=== PATIENT | female | born 1985 ===

== ENCOUNTER 2019-08-17 13:21 | Outpatient (CLI) | payer OTHER, SELFPAY ==
[2019-08-17 13:50] LABS: Basophils % 0.6 %; Eosinophils # 0.1 10^3/uL (0.0-0.8); Eosinophils % 1.1 %; Hematocrit 44.2 % (37.0-47.0); Hemoglobin 14.8 g/dL (11.5-15.3); Lymphocytes # 3.3 10^3/uL (0.8-4.8); Lymphocytes % 46.9 %; Mean Corpuscular HGB Conc 33.5 g/dL (30.0-36.0); Mean Corpuscular Hemoglobin 29.2 pg (28.0-34.0); Mean Corpuscular Volume 87.2 fL (81-99); Mean Platelet Volume 8.9 fL (7.4-10.4); Monocytes # 0.7 10^3/uL (0.2-0.9); Monocytes % 9.7 %; Neutrophils % 41.4 %; Nucleated Red Blood Cells % 0 %; Platelet Count 364 10^3/cmm (130-400); Red Blood Count 5.07 10^6/uL (4.1-5.3); Red Cell Distribution Width 12.6 % (12.1-15.1); White Blood Count 7.1 10^3/uL (4.0-10.0)
[2019-08-17 13:57] LABS: Add RBC Morph No
[2019-08-17 14:12] LABS: Free T4 Free Thyroxine 1.36 ng/dL (0.82-1.77); Thyroid Stimulating Hormone 1.37 uIU/mL (0.27-4.20)
== END 2019-08-17 13:22 | disposition home or self-care (01) ==
LOC: LAB 13:23
PROVIDERS: Family Provider Family Medicine; PCP Family Medicine; Visit Provider Nurse Practitioner Family
DX: R59.1 Generalized enlarged lymph nodes (principal)
CPT/HCPCS: 84439; 84443; 85025

== ENCOUNTER 2019-09-07 07:14 | Outpatient (CLI) | payer OTHER, SELFPAY ==
--- NOTE | 2019-09-07 07:15 | US_ITS ---
WS: [id number] ULTRASOUND SOFT TISSUES submandibular region. HISTORY: neck lump COMPARISON: None available. TECHNIQUE: 2-D and color Doppler imaging is submitted. There are multiple hypoechoic masses or placement of a normal fatty hilum in the submental and subman dibular regions bilaterally. These are abnormal lymph nodes with increased vascularity. The largest l ymph node measures 1.4 x 0.6 x 1.4 cm in the submental region. Lymph nodes are not significantly enla rged but they are abnormal in echogenicity and replacement of the hilum. There is an additional area of calcification in the LEFT neck causing shadowing. US/US soft tissue head neck [id number] IMPRESSION: 1. Numerous abnormal lymph nodes in the submental and submandibular regions. M ay be reactive adenopathy but neoplasm needs to be excluded. Recommend follow-u p neck CT with IV contrast. 2. No abscess.
== END 2019-09-07 07:15 | disposition home or self-care (01) ==
PROVIDERS: Family Provider Family Medicine; PCP Family Medicine; Visit Provider Nurse Practitioner Family
DX: R22.1 Localized swelling, mass and lump, neck (principal)
CPT/HCPCS: 76536

== ENCOUNTER 2019-09-08 14:04 | Outpatient (CLI) | payer OTHER, SELFPAY ==
--- NOTE | 2019-09-08 14:16 | CTR_ITS ---
PROCEDURE INFORMATION: Exam: CT Neck With Contrast Exam date and time: 09/08/2019 4:33 PM Age: 34 years old Clinical indication: Patient HX: Lumps on neck; Additional info: Abnormal lymph nodes TECHNIQUE: Imaging protocol: Computed tomography images of the neck with intravenous contrast. Total DLP: 629.19 mGy-cm Radiation optimization: All CT scans at this facility use at least one of these dose optimization techniques: automated exposure control; mA and/or kV adjustment per patient size (includes targeted exams where dose is matched to clinical indication); or iterative reconstruction. Contrast material: OMNI 300; Contrast volume: 95 ml; Contrast route: IV; COMPARISON: US soft tissue head neck [id number] 09/07/2019 7:30 AM FINDINGS: Nasopharynx: Tonsils and adenoids are diffusely and mildly enlarged concerning for mild adenitis. Oropharynx: Unremarkable. No significant tonsillar enlargement. Hypopharynx: Unremarkable Larynx: Unremarkable. Normal epiglottis. Retropharyngeal space: Unremarkable. Submandibular/Parotid glands: The submandibular gland is slightly longer than the right on the coronal images but is identical in density. The left submandibular gland measures 3.3 cm in length and the right measures 3.0 cm. Both glands measure 2.2 cm anterior to posterior and 1.5 cm medial to lateral. Both glands are identical in density. There is no adjacent edema or fluid and no calculus in the gland. This may simply reflect congenital variation. Note is made that there is a marker on the skin surface which is directly adjacent to the tip of the long gated left submandibular gland. Thyroid: Normal. No enlarged or calcified nodules. Lymph nodes: There is submandibular adenopathy left slightly greater than right with the largest lymph node on image 51 measuring 1.3 cm in short axis. On the right at the same image level, the largest lymph node measures 1.1 cm in short axis. Additional subcentimeter lymph nodes are noted in the neck but there is no additional pathologic adenopathy. Trachea: Visualized trachea is unremarkable. Lungs: Unremarkable as visualized. Bones/joints: Unremarkable. No acute fracture. Soft tissues: No fluid collection or abscess. CT/CT neck w con* [id number] IMPRESSION: 1. Tonsils and adenoids are diffusely and mildly enlarged concerning for mild adenitis. 2. Adenopathy in the submandibular region as above. No additional adenopathy in the neck. No additional mass. No fluid collection or abscess. 3. Slight asymmetry in the length of the submandibular glands may reflect congenital variation. The left submandibular gland is slightly longer than the right but otherwise there are identified coil in appearance. Marker on the skin surface is directly overlying the inferior tip elongated left submandibular gland. Radiation Dose CTDIVOL = (mGy): DLP = 629.19 (mGy-cm)
[2019-09-08] MEDS: iohexol 300 mg/mL 100 mL Btl IV (16:35)
== END 2019-09-08 14:05 | disposition home or self-care (01) ==
LOC: RAD 14:07
PROVIDERS: Family Provider Family Medicine; PCP Family Medicine; Visit Provider Nurse Practitioner Family
DX: J35.3 Hypertrophy of tonsils with hypertrophy of adenoids (principal); R22.1 Localized swelling, mass and lump, neck
CPT/HCPCS: 70491

== ENCOUNTER → 2019-09-14 09:16 | Outpatient (BNVA) | payer OTHER, SELFPAY | PROVIDERS: Family Provider Family Medicine; PCP Family Medicine; Referring Provider Nurse Practitioner Family; Visit Provider Otolaryngology | DX: R22.1 Localized swelling, mass and lump, neck (principal); J35.01 Chronic tonsillitis; J35.8 Other chronic diseases of tonsils and adenoids | CPT/HCPCS: 99203; 99214 ==

== ENCOUNTER → 2019-10-12 13:38 | Outpatient (BNVA) | payer OTHER, SELFPAY | PROVIDERS: Family Provider Family Medicine; PCP Family Medicine; Visit Provider Otolaryngology | DX: R22.1 Localized swelling, mass and lump, neck (principal); J35.01 Chronic tonsillitis; J35.8 Other chronic diseases of tonsils and adenoids | CPT/HCPCS: 99214 ==

== ENCOUNTER 2019-10-26 08:45 | Day surgery (SDC) | payer OTHER, SELFPAY ==
[2019-10-18 13:29] VITALS: BMI 26.9
[2019-10-26] VITALS (9 sets, daily range): BP systolic 120–152; BP diastolic 66–94; PULSE 62–91; RESP 16–24; TEMP 36.2–36.7; O2SAT 97–100
[2019-10-26 09:28] LABS: OR HCG Qualitative Urine Negative (Negative)
--- NOTE | 2019-10-26 09:35 | ANES.PREANE2 ---
Pre-Anesthetic Assessment Pre-Anesthetic Assessment: Height/Weight: Height 1.57 m Weight 66.678 kg Temp Pulse Resp BP Pulse Ox 97.8 F 77 18 130/94 100 10/26/19 09:06 10/26/19 09:06 10/26/19 09:06 10/26/19 09:06 10/26/19 09:06 Preop Diagnosis: Midline neck mass Proposed Procedure: Operation Date: 10/19/19 11:20 Proposed Procedures p excision midline neck mass, possible heidy procedure (19840, 68823) R22.1(Not Applicable) - Radhames Mcdonough MD s Possible Heidy Procedure(Not Applicable) - Radhames Mcdonough MD Operation Date: 10/26/19 10:15 Proposed Procedures p excision midline neck mass, possible heidy procedure (48301, 93981) R22.1(Not Applicable) - Radhames Mcdonough MD s Possible Heidy Procedure(Not Applicable) - Radhames Mcdonough MD Was Beta Leatha taken within 24 hours: N/A Last intake: Intake Last Liquid Date 10/25/19 Last Liquid Time 09:11 Last Solid Date 10/25/19 Last Solid Time 22:00 Social: Social History: No alcohol and No tobacco Exam: Pre-Anes Outpt Exam: alert, oriented x 3, clear to auscultation bilaterally and regular rate & rhythm Airway: Submandibular: WNL Cervical ROM: WNL MP: 2 Dentition: Full History/ROS: No significant complaints Pulmonary: Pulmonary: None reported CV/HEM: CV/HEM: None reported : : None reported Hepatic: Hepatic: None reported GI: GI: None reported Metabolic: Metabolic: None reported Musc/skel: Musc/skel: None reported Neuropsych: Neuropsych: None reported Anesthetic Plan: ASA status: 1 Anesthesia: General Risk of > 500 ml blood loss (7ml/kg in children): No PFSH Anesthesia PFSH: Social History Smoking and tobacco status: never smoked Alcohol intake: current Alcohol intake frequency: few times a month Alcohol type: wine Female Reproductive History: Date of last menstrual period: 08/05/19 Data Anesthesia Other Labs: Laboratory Results - last 48 hr 10/26/19 09:19 Urine HCG, Qual Negative Cardiac Studies: No Data to Display
[2019-10-26] MEDS: sodium chloride 0.9% 1,000 ML 30 ML IV (09:49)
--- NOTE | 2019-10-26 09:59 | W.PM.OPSUD ---
Surgery/Procedure H&P Update DATE OF PROCEDURE: October 26, 2019 DATE H&P PERFORMED: 10/12/19 H&P UPDATE INFORMATION: I have reviewed H&P completed within last 30 days, I have examined patient prior to procedure and No changes to prior documentation PREOP DIAGNOSIS: Midline neck mass PLANNED PROCEDURE: Operation Date: 10/19/19 11:20 Proposed Procedures p excision midline neck mass, possible heidy procedure (82100, 40891) R22.1(Not Applicable) - Radhames Mcdonough MD s Possible Heidy Procedure(Not Applicable) - Radhames Mcdonough MD Operation Date: 10/26/19 10:15 Proposed Procedures p excision midline neck mass, possible heidy procedure (70510, 09946) R22.1(Not Applicable) - Radhames Mcdonough MD s Possible Heidy Procedure(Not Applicable) - Radhames Mcdonough MD
[2019-10-26] MEDS: neomycin-poly-bacitracin oint 28 gm 1 APPLIC TOPICAL (13:11)
--- NOTE | 2019-10-26 13:21 | SUR.PHASEI ---
1320 PATIENT TO PACU AT THIS TIME. DRESSING TO ANTERIOR NECK, BULKY, CDI. RR EVEN AND UNLABORED, PLACED ON SIMPLE MASK AT 8L, SPO2 100%/. PATIENT RESPONDS TO VERBAL STIMULI, DENIES PAIN.
--- NOTE | 2019-10-26 13:44 | SUR.PHASEI ---
1341 PATIENT TO PACU AT THIS TIME. DENIES PAIN. DRESSING CDI TO ANTERIOR NECK.
--- NOTE | 2019-10-26 13:48 | PM.PACU ---
PACU note Post-Anesthesia Exam: awake and vital signs stable Disposition: discharged
--- NOTE | 2019-11-09 08:42 | PM.OP ---
Operative Report Date of procedure: November 09, 2019 Pre-op Diagnosis: Midline neck mass Post-op diagnosis: same Post-op Findings: Midline neck mass Procedure Done: Excision midline neck mass Specimens removed/disposition: Midline neck mass Surgeon: Radhames Mcdonough Anesthesia: General Complications: None Condition: stable Disposition: PACU Brief History: Bessie is a 34-year-old female with a persistent midline neck mass. Procedure: The patient was taken to the operating room and under satisfactory general endotracheal anesthesia the neck was prepped draped and injected. A 2 cm incision was created at the level of the hyoid. Dissection was carried down through the anterior layer of deep cervical fascia identifying a multilobulated solid mass. There appeared to be no cystic component and no communication or tract to the hyoid bone. The mass was removed in its entirety and sent for histopathologic analysis. The wound was closed in layered interrupted fashion with 4-0 chromic and 5-0 undyed Vicryl subcuticular suture. A neck dressing was applied. The patient was allowed awaken and taken to the recovery room where she was observed. During the observation time postoperative care instructions and counseling including detailed written and verbal instructions were given to the patient and her friend. Once all parties verbalized understanding of all instructions and once the patient met discharge criteria she was discharged in satisfactory and stable condition.
== END 2019-10-26 14:20 | disposition home or self-care (01) ==
PROVIDERS: Family Provider Family Medicine; PCP Family Medicine; Visit Provider Otolaryngology
PROC: (CPT 21556; principal; 2019-10-26 10:15)
PROC: (CPT 60280; 2019-10-26 10:15)
DX: R22.1 Localized swelling, mass and lump, neck (principal)
CPT/HCPCS: 21556; 12345; 81025; 84703; 88307; J1100; J2001; J2405; J2704; J3010; J3490; J7030

== ENCOUNTER → 2019-10-27 10:25 | Outpatient (BNVA) | payer OTHER, SELFPAY | PROVIDERS: Family Provider Family Medicine; PCP Family Medicine; Visit Provider Otolaryngology | DX: Z48.89 Encounter for other specified surgical aftercare (principal) | CPT/HCPCS: 99024 ==

== ENCOUNTER → 2019-11-09 12:16 | Outpatient (BNVA) | payer OTHER, SELFPAY | PROVIDERS: Family Provider Family Medicine; PCP Family Medicine; Visit Provider Otolaryngology | DX: R22.1 Localized swelling, mass and lump, neck (principal); J35.01 Chronic tonsillitis; J35.8 Other chronic diseases of tonsils and adenoids; Z48.89 Encounter for other specified surgical aftercare | CPT/HCPCS: 99024; 99214 ==